=== PATIENT | female | born 1950 | race Caucasian/White ===

== ENCOUNTER 2019-01-31 22:21 | Emergency (ER) | payer BC, OTHER ==
[~2019-01-31] VITALS: Ht 162.6 cm; Wt 57.0 kg
[2019-01-31 22:40] VITALS: Ht 162.6 cm; Wt 57.0 kg
[2019-01-31] MEDS ORDERED: DEXTROSE 5%-0.9% NACL 1,000 ML IV STA (23:02)
[2019-02-01 01:15] VITALS: BP 115/69; PULSE 81; RESP 19
[2019-02-01] MEDS ORDERED: METF-849 PO (01:17)
[2019-02-01] MEDS ORDERED: MEMA10TA PO (01:17)
[2019-02-01] MEDS ORDERED: SITA100T11 PO (01:17)
[2019-02-01] MEDS ORDERED: NOVO3I SC (01:17)
[2019-02-01] MEDS ORDERED: PANT40TA4 PO (01:17)
[2019-02-01] MEDS ORDERED: QUET25TA33 PO (01:17)
[2019-02-01] MEDS ORDERED: AMLO2.5T78 PO (01:17)
[2019-02-01] MEDS ORDERED: VALP250C3 PO (01:19)
[2019-02-01] MEDS ORDERED: MAGN300C2 PO (01:19)
[2019-02-01] MEDS ORDERED: ATOR10TA65 PO (01:19)
[2019-02-01] MEDS ORDERED: LEVO112T57 PO (01:19)
[2019-02-01] MEDS ORDERED: DOCU240C53 PO (01:22)
[2019-02-01] MEDS ORDERED: IRON1TAB78 PO (01:22)
[2019-02-01] MEDS ORDERED: LANT3I SC (01:22)
--- NOTE | 2019-03-01 01:53 | ERD ---
ER Documentation Chief Complaint Chief Complaint blood sugar management difficulty: 55-60 at [facility] w/ po juice; glucagon =ems HPI This is a very pleasant [age]-year-old female states she has a blood sugar for 560 to [facility] with p.o. juice. She is able to call EMS. No fevers no chills no nausea vomiting chest pain. No other current complaints. ROS All systems reviewed and are negative except as per history of present illness. Medications Home Meds Reported Medications Insulin Glargine* (Lantus*) 100 Unit/Ml Soln, SC QHS, #1 VIAL 02/01/19 Docusate Calcium* (Stool Softener*) 240 Mg Capsule, 240 MG PO DAILY, CAP 02/01/19 Iron,Carbonyl/Vit C/Vit B12/Fa (IRON 100 PLUS TABLET) 1 Each Tablet, 1 EACH PO DAILY, TAB 02/01/19 Magnesium Oxide/Mag Aa Chelate (Magnesium 300 Mg Capsule) 300 Mg Capsule, 600 MG PO DAILY, CAP 02/01/19 Levothyroxine Sodium* (Levothyroxine Sodium*) 112 Mcg Tablet, 112 MCG PO BEFORE BREAKFAST, #30 TAB 02/01/19 Atorvastatin Calcium (Atorvastatin Calcium) 10 Mg Tablet, 20 MG PO QHS, #30 TAB 02/01/19 Valproic Acid* (Valproic Acid*) 250 Mg Capsule, 500 MG PO DAILY, CAP 02/01/19 Sitagliptin* (Januvia*) 100 Mg Tablet, 100 MG PO DAILY, #30 TAB 02/01/19 Quetiapine Fumarate* (Quetiapine Fumarate*) 25 Mg Tablet, 100 MG PO HS, TAB TAKE 4 TABLETS BY MOUTH DAILY AT BEDTIME 02/01/19 Metformin* (Glucophage*) 500 Mg Tab, 500 MG PO WITH MEALS, #90 TAB 02/01/19 Memantine* (Namenda*) 10 Mg Tablet, 10 MG PO DAILY, #30 TAB 02/01/19 Amlodipine Besylate* (Amlodipine Besylate*) 2.5 Mg Tablet, 2.5 MG PO DAILY, #30 TAB 02/01/19 Pantoprazole* (Pantoprazole*) 40 Mg Tablet.dr, 40 MG PO DAILY, TAB 02/01/19 Insulin Aspart* (Novolog Insulin Pen*) 100 Unit/Ml Soln, 0 SC .SLIDING SCALE AC, EA 5/28/19 Allergies Allergies: Coded Allergies: No Known Allergy (Unverified , 02/01/19) PMhx/Soc History of Surgery: No Anesthesia Reaction: No Hx Neurological Disorder: No Hx Respiratory Disorders: No Hx Cardiac Disorders: No Hx Psychiatric Problems: No Hx Miscellaneous Medical Probl: No Hx Alcohol Use: No Hx Substance Use: No Hx Tobacco Use: No Smoking Status: Never smoker Physical Exam Vitals Vital signs stable Physical Exam Const: No acute distress Head: Atraumatic Eyes: Normal Conjunctiva ENT: Normal External Ears, Nose and Mouth. Neck: Full range of motion. No meningismus. Resp: Clear to auscultation bilaterally Cardio: Regular rate and rhythm, no murmurs Abd: Soft, non tender, non distended. Normal bowel sounds Skin: No petechiae or rashes Back: No midline or flank tenderness Ext: No cyanosis, or edema Neur: Awake and alert Psych: Normal Mood and Affect Results 24 hrs Laboratory Tests Test 01/31/19 22:51 02/01/19 00:19 White Blood Count 6.6 10^3/ul Red Blood Count 3.98 10^6/ul Hemoglobin 11.9 g/dl Hematocrit 35.5 % Mean Corpuscular Volume 89.2 fl Mean Corpuscular Hemoglobin 29.9 pg Mean Corpuscular Hemoglobin Concent 33.5 g/dl Red Cell Distribution Width 13.0 % Platelet Count 218 10^3/UL Mean Platelet Volume 12.6 fl Immature Granulocytes % 0.300 % Neutrophils % 50.3 % Lymphocytes % 31.5 % Monocytes % 15.0 % Eosinophils % 1.8 % Basophils % 1.1 % Nucleated Red Blood Cells % 0.0 /100WBC Immature Granulocytes # 0.020 10^3/ul Neutrophils # 3.3 10^3/ul Lymphocytes # 2.1 10^3/ul Monocytes # 1.0 10^3/ul Eosinophils # 0.1 10^3/ul Basophils # 0.1 10^3/ul Nucleated Red Blood Cells # 0.0 10^3/ul Sodium Level 139 mmol/L Potassium Level 4.0 mmol/L Chloride Level 103 mmol/L Carbon Dioxide Level 26 mmol/L Anion Gap 10 Blood Urea Nitrogen 14 mg/dl Creatinine 0.64 mg/dl Est Glomerular Filtrat Rate mL/min > 60 mL/min Glucose Level 91 mg/dl Bedside Glucose 88 mg/dL 116 mg/dL Calcium Level 9.4 mg/dl Total Bilirubin 0.2 mg/dl Direct Bilirubin 0.00 mg/dl Indirect Bilirubin 0.2 mg/dl Aspartate Amino Transf (AST/SGOT) 48 IU/L Alanine Aminotransferase (ALT/SGPT) 13 IU/L Alkaline Phosphatase 68 IU/L Troponin I < 0.012 ng/ml Total Protein 6.9 g/dl Albumin 3.7 g/dl Globulin 3.20 g/dl Albumin/Globulin Ratio 1.15 Lipase 30 U/L Current Medications Medications Dose Sig/David Start Time Status Last (Trade) Ordered Route PRN Stop Time Admin Dose Reason Admin 1,000 ml @ Q10H STAT 01/31/19 DC 01/31/19 Dextrose/Sodi 100 mls/hr IV 23:02 23:13 um Chloride 02/01/19 01:17 Procedures/MDM Medical decision makin02/11/2018 with hypoglycemia that is since resolved. Stable for outpatient management for discharge back to senior living facility. Departure Diagnosis: Primary Impression: Hypoglycemia Condition: Stable Patient Instructions: Hypoglycemia (Low Blood Sugar) LUIS PACK Mar 01, 2019 01:52
== END 2019-02-01 01:17 | disposition home or self-care (01) ==
LOC: E/R 22:21
DX: E16.2 Hypoglycemia, unspecified (principal); Z79.4 Long term (current) use of insulin
CPT/HCPCS: 36415; 71045; 80053; 82962; 83690; 84484; 85025; 99284; J7042